=== PATIENT | female | born 1965 | race Caucasian/White ===

== ENCOUNTER → 2017-02-24 | Outpatient (CLI) | payer BC ==
--- NOTE | 2017-02-24 14:28 | MM ---
Reason for exam: follow-up at short interval from prior study. Last mammogram was performed 6 months ago. History: Patient is postmenopausal and history of other cancer. Family history of breast cancer in grandmother at age 97. Benign US left guided VAD of the left breast, July 17, 2009. Benign US left guided VAD of the left breast, July 17, 2009. Benign excisional biopsy of the left breast, 1991. Took estrogen for 2 years beginning at age 42. MG Diagnostic Mammo LT w CAD CC, MLO, and ML view(s) were taken of the left breast. Prior study comparison: August 13, 2016, bilateral MG screening mammo w CAD. June 14, 2015, bilateral MG screening mammo w CAD. August 06, 2011, bilateral digital screening mammo w/CAD. The breast tissue is heterogeneously dense. This may lower the sensitivity of mammography. Finding: There are typically benign round calcifications in the left breast. Previous mammotome biopsy in the left breast x 2. There is no discrete abnormality. These results were verbally communicated with the patient and result sheet given to the patient on 02/24/17. ASSESSMENT: Benign, BI-RAD 2 RECOMMENDATION: Return to routine screening mammogram schedule for both breasts. Back on schedule.
== END | disposition home or self-care (01) ==
LOC: RADMAMWWP 12:45
PROVIDERS: ATTEND Family Medicine
DX: R92.8 Other abnormal and inconclusive findings on diagnostic imaging of breast (principal)

== ENCOUNTER 2017-12-31 13:29 | Emergency (ER) | payer BC ==
[2017-12-31] MEDS ORDERED: LABETALOL 5 MG/ML VIAL MDV IVP STA (13:47)
--- NOTE | 2017-12-31 14:14 | ED ---
General Adult HPI - General Chief complaint: Neuro Symptoms/Deficit Stated complaint: right arm numbness Time Seen by Provider: 12/31/17 13:39 Source: patient Mode of arrival: ambulatory Limitations: no limitations - History of Present Illness Initial comments: This 52-year-old white female presents with a complaint of some right arm numbness. This is been present since waking this morning. She denies any actual right arm pain or weakness. She denies any other extremity pain, numbness, or weakness. She denies any chest pain or shortness of breath. There is no other neurologic complaints such as problems with ambulation, vision , speech, or coordination. She denies any previous history of CVA or TIA. She denies any cardiac problems. His been no fevers or chills. She does relate a history of lymphoma which has been in remission for the last 8 years. She has not followed up much with this recently. No other complaints or modifying factors. - Related Data Home Medications Medication Instructions Recorded Confirmed Black Cohosh Root [Black Cohosh] 200 mg PO DAILY 12/31/17 12/31/17 Ibuprofen [Motrin Ib] 200 - 400 mg PO Q6H PRN 12/31/17 12/31/17 Losartan Potassium 100 mg PO DAILY 12/31/17 12/31/17 Meclizine [Antivert] 12.5 mg PO TID 12/31/17 12/31/17 Triamterene-Hctz 37.5-25Mg 1 cap PO DAILY 12/31/17 12/31/17 [Dyazide 37.5-25 Capsule] Turmeric Root Extract [Turmeric] 500 mg PO DAILY 12/31/17 12/31/17 metFORMIN HCL ER [Glucophage Xr] 500 mg PO DAILY 12/31/17 12/31/17 Allergies Allergy/AdvReac Type Severity Reaction Status Date / Time attapulgite [From Donnagel] Allergy Rash/Hives Verified 12/31/17 15:13 bee venom protein (honey bee) Allergy Anaphylaxis Verified 12/31/17 15:13 acetaminophen [From Vicodin] AdvReac Nausea Verified 12/31/17 15:13 hydrocodone [From Vicodin] AdvReac Nausea Verified 12/31/17 15:13 Review of Systems ROS Statement: Those systems with pertinent positive or pertinent negative responses have been documented in the HPI. ROS Other: All systems not noted in ROS Statement are negative. Past Medical History Past Medical History: Cancer, Diabetes Mellitus, Hypertension Additional Past Medical History / Comment(s): Lymphoma History of Any Multi-Drug Resistant Organisms: None Reported Past Surgical History: Hysterectomy, Tonsillectomy Past Psychological History: No Psychological Hx Reported Smoking Status: Former smoker Past Alcohol Use History: None Reported Past Drug Use History: None Reported General Exam - General Exam Comments Initial Comments: GENERAL: The patient is well nourished and well hydrated. VITAL SIGNS: Heart rate, blood pressure, respiratory rate reviewed as recorded in nurse's notes. EYES: Pupils are round and reactive. Extraocular movements are intact. No conjunctival / lid redness or swelling. ENT: No external evidence of injury, swelling, or ecchymosis. Airway is patent. Throat is clear. NECK: Nontender. No swelling or evidence of injury. No subcutaneous emphysema. Trachea is midline. No thyroid mass. HEART: Regular rate and rhythm. Good peripheral pulses. LUNGS/CHEST: Breath sounds clear and equal bilaterally. No rales, rhonchi, or wheezes. No ecchymosis, subcutaneous emphysema, or tenderness. ABDOMEN: Abdomen soft without tenderness. No palpable masses or organomegaly. No peritoneal signs. No abdominal wall swelling or ecchymosis. EXTREMITIES: No extremity tenderness. Normal muscle tone and function. No thoracolumbar tenderness. NEUROLOGIC: Sensation is grossly intact currently. Cranial nerve exam reveals face is symmetrical, tongue is midline, speech is clear. SKIN: No abrasions or ecchymosis is noted. No induration or masses noted. PSYCHIATRIC: Alert and oriented. Appropriate behavior and judgment. Limitations: no limitations Course Vital Signs 12/31/17 12/31/17 13:29 14:22 Temperature 97.6 F Pulse Rate 90 88 Respiratory 108 H 18 Rate Blood Pressure 188/94 174/83 O2 Sat by Pulse 97 95 Oximetry Medical Decision Making - Medical Decision Making The patient was seen and examined. All diagnostics were reviewed. An EKG was done and shows a normal sinus rhythm at a rate of 79. There is no acute ST-T wave changes identified. The NE intervals 188, QRS duration is 90, and the QTC intervals 458. The computed tomography scan of the brain, chest x-ray, and labs were all essentially within normal limits are unremarkable. The exact cause of her symptoms are not definitively determined. It is not felt as though she would require admission to the hospital at this time but may follow- up with neurology on outpatient basis. She is instructed to take a baby aspirin daily. She also has some hypertension issues which she should follow- up closely with her primary care physician for as well. All questions are answered and she leaves in no distress. Return parameters are discussed. - Lab Data Result diagrams: 12/31/17 14:20 12/31/17 14:20 Lab Results 12/31/17 12/31/17 12/31/17 Range/Units 14:20 14:20 14:20 WBC 6.7 (3.8-10.6) k/uL RBC 4.43 (3.80-5.40) m/uL Hgb 13.4 (11.4-16.0) gm/dL Hct 39.1 (34.0-46.0) % MCV 88.3 (80.0-100.0) fL MCH 30.2 (25.0-35.0) pg MCHC 34.2 (31.0-37.0) g/dL RDW 12.5 (11.5-15.5) % Plt Count 267 (150-450) k/uL Neutrophils % 67 % Lymphocytes % 23 % Monocytes % 6 % Eosinophils % 2 % Basophils % 1 % Neutrophils # 4.5 (1.3-7.7) k/uL Lymphocytes # 1.5 (1.0-4.8) k/uL Monocytes # 0.4 (0-1.0) k/uL Eosinophils # 0.1 (0-0.7) k/uL Basophils # 0.0 (0-0.2) k/uL PT (9.0-12.0) sec INR (<1.2) APTT (22.0-30.0) sec Sodium 142 (137-145) mmol/L Potassium 3.7 (3.5-5.1) mmol/L Chloride 102 (98-107) mmol/L Carbon Dioxide 29 (22-30) mmol/L Anion Gap 11 mmol/L BUN 19 H (7-17) mg/dL Creatinine 0.63 (0.52-1.04) mg/dL Est GFR (CKD-EPI)AfAm >90 (>60 ml/min/1.73 sqM) Est GFR (CKD-EPI)NonAf >90 (>60 ml/min/1.73 sqM) Glucose 108 H (74-99) mg/dL Calcium 10.2 (8.4-10.2) mg/dL Total Bilirubin 0.6 (0.2-1.3) mg/dL AST 36 (14-36) U/L ALT 61 H (9-52) U/L Alkaline Phosphatase 76 (38-126) U/L Total Creatine Kinase 92 (30-135) U/L CK-MB (CK-2) 0.7 (0.0-2.4) ng/mL CK-MB (CK-2) Rel Index 0.8 Troponin I <0.012 (0.000-0.034) ng/mL Total Protein 6.9 (6.3-8.2) g/dL Albumin 4.2 (3.5-5.0) g/dL 12/31/17 Range/Units 14:20 WBC (3.8-10.6) k/uL RBC (3.80-5.40) m/uL Hgb (11.4-16.0) gm/dL Hct (34.0-46.0) % MCV (80.0-100.0) fL MCH (25.0-35.0) pg MCHC (31.0-37.0) g/dL RDW (11.5-15.5) % Plt Count (150-450) k/uL Neutrophils % % Lymphocytes % % Monocytes % % Eosinophils % % Basophils % % Neutrophils # (1.3-7.7) k/uL Lymphocytes # (1.0-4.8) k/uL Monocytes # (0-1.0) k/uL Eosinophils # (0-0.7) k/uL Basophils # (0-0.2) k/uL PT 9.9 (9.0-12.0) sec INR 1.0 (<1.2) APTT 23.3 (22.0-30.0) sec Sodium (137-145) mmol/L Potassium (3.5-5.1) mmol/L Chloride (98-107) mmol/L Carbon Dioxide (22-30) mmol/L Anion Gap mmol/L BUN (7-17) mg/dL Creatinine (0.52-1.04) mg/dL Est GFR (CKD-EPI)AfAm (>60 ml/min/1.73 sqM) Est GFR (CKD-EPI)NonAf (>60 ml/min/1.73 sqM) Glucose (74-99) mg/dL Calcium (8.4-10.2) mg/dL Total Bilirubin (0.2-1.3) mg/dL AST (14-36) U/L ALT (9-52) U/L Alkaline Phosphatase (38-126) U/L Total Creatine Kinase (30-135) U/L CK-MB (CK-2) (0.0-2.4) ng/mL CK-MB (CK-2) Rel Index Troponin I (0.000-0.034) ng/mL Total Protein (6.3-8.2) g/dL Albumin (3.5-5.0) g/dL Disposition Clinical Impression: Arm paresthesia, right, Hypertension Disposition: HOME SELF-CARE Condition: Good Instructions: Paresthesia (ED), DASH Eating Plan (ED), Hypertension (ED) Referrals: Marilee Dover DO [Primary Care Provider] - 1-2 days Shayla lFaherty MD [STAFF PHYSICIAN] - As Soon As Possible Time of Disposition: 15:39
[2017-12-31 14:24] VITALS: RESP 18
[2017-12-31 14:36] LABS: Basophils % (A) 1 %; Eosinophils # (A) 0.1 k/uL (0-0.7); Eosinophils % (A) 2 %; HCT 39.1 % (34.0-46.0); HGB 13.4 gm/dL (11.4-16.0); Lymphocytes # (A) 1.5 k/uL (1.0-4.8); Lymphocytes % (A) 23 %; MCH 30.2 pg (25.0-35.0); MCHC 34.2 g/dL (31.0-37.0); MCV 88.3 fL (80.0-100.0); Mean Platelet Volume 7.3; Monocytes # (A) 0.4 k/uL (0-1.0); Monocytes % (A) 6 %; Neutrophils # (A) 4.5 k/uL (1.3-7.7); Neutrophils % (A) 67 %; Platelet Count 267 k/uL (150-450); RBC 4.43 m/uL (3.80-5.40); RDW 12.5 % (11.5-15.5); WBC 6.7 k/uL (3.8-10.6)
[2017-12-31 14:46] LABS: ALT 61 U/L (9-52); AST 36 U/L (14-36); Albumin 4.2 g/dL (3.5-5.0); Alkaline Phosphatase 76 U/L (38-126); Anion Gap 11 mmol/L; Blood Urea Nitrogen 19 mg/dL (7-17); Calcium 10.2 mg/dL (8.4-10.2); Carbon Dioxide 29 mmol/L (22-30); Chloride 102 mmol/L (98-107); Glucose 108 mg/dL (74-99); Potassium 3.7 mmol/L (3.5-5.1); Sodium 142 mmol/L (137-145); Total Bilirubin 0.6 mg/dL (0.2-1.3); Total Protein 6.9 g/dL (6.3-8.2)
--- NOTE | 2017-12-31 14:55 | XR ---
EXAMINATION TYPE: XR chest 2V DATE OF EXAM: 12/31/2017 COMPARISON: NONE HISTORY: Altered mental status TECHNIQUE: Frontal and lateral views of the chest are obtained. FINDINGS: There is no focal air space opacity, pleural effusion, or pneumothorax seen. The cardiac silhouette size is within normal limits. The osseous structures are intact. IMPRESSION: No acute cardiopulmonary process.
[2017-12-31 14:56] LABS: Creatine Kinase 92 U/L (30-135); Partial Thromboplastin Time 23.3 sec (22.0-30.0); Prothrombin Time 9.9 sec (9.0-12.0)
[2017-12-31 15:09] LABS: Creatine Kinase MB 0.7 ng/mL (0.0-2.4); Troponin I <0.012 ng/mL (0.000-0.034)
--- NOTE | 2017-12-31 15:25 | CT ---
EXAMINATION TYPE: CT brain wo con DATE OF EXAM: 12/31/2017 COMPARISON: NONE INDICATION: Patient complains of headache and right arm numbness. DLP: 999 mGycm, Automated exposure control for dose reduction was used. CONTRAST: None CT of the brain is performed utilizing 3 mm thick sections through the posterior fossa and 3 mm thick sections through the remaining calvarium. Study is performed within 24 hours of arrival to the hosp [facility]. No abnormal hyperdensity is present to suggest an acute intracranial hemorrhage. No mass lesion is evident. No acute infarcts are evident. Ventricles and sulci are appropriate for the patient age. Paranasal sinuses and mastoid air cells within the [id number] are clear. IMPRESSIONS: 1. Normal CT Brain
[2017-12-31 15:43] VITALS: BP 142/77; PULSE 83; TEMP 97.8
== END 2017-12-31 15:58 | disposition home or self-care (01) ==
LOC: EC 13:29
DX: I10 Essential (primary) hypertension (principal); R20.2 Paresthesia of skin; E11.9 Type 2 diabetes mellitus without complications; Z87.891 Personal history of nicotine dependence; Z79.84 Long term (current) use of oral hypoglycemic drugs; Z79.899 Other long term (current) drug therapy; Z88.5 Allergy status to narcotic agent; Z88.8 Allergy status to other drugs, medicaments and biological substances; Z91.030 Bee allergy status; Z85.72 Personal history of non-Hodgkin lymphomas
CPT/HCPCS: 36415; 70450; 71046; 80053; 82550; 82553; 84484; 85025; 85610; 85730; 93005; 96374; 99284

== ENCOUNTER → 2018-11-09 | Outpatient (CLI) | payer BC ==
--- NOTE | 2018-11-13 11:23 | MM ---
Reason for exam: screening (asymptomatic). Last mammogram was performed 1 year and 8 months ago. History: Patient is postmenopausal and history of other cancer. Family history of breast cancer in grandmother at age 97. Benign US left guided VAD of the left breast, July 17, 2009. Benign US left guided VAD of the left breast, July 17, 2009. Benign excisional biopsy of the left breast, 1991. Took estrogen for 2 years beginning at age 42. MG Screening Mammo w CAD Bilateral CC and MLO view(s) were taken. Prior study comparison: February 24, 2017, left breast MG diagnostic mammo LT w CAD. August 20, 2016, left breast MG work up mamm w CAD LT. The breast tissue is heterogeneously dense. This may lower the sensitivity of mammography. There are benign-appearing round dystrophic bilateral breast calcifications. Previous mammotome biopsy on the left breast. No discrete abnormality. ASSESSMENT: Benign, BI-RAD 2 RECOMMENDATION: Routine screening mammogram of both breasts in 1 year.
== END | disposition home or self-care (01) ==
LOC: RADMAMWWP 10:59
PROVIDERS: ATTEND Family Medicine
DX: Z12.31 Encounter for screening mammogram for malignant neoplasm of breast (principal)
CPT/HCPCS: 77067

== ENCOUNTER → 2020-08-22 | Outpatient (CLI) | payer BC ==
--- NOTE | 2020-08-24 11:06 | MM ---
Reason for exam: screening (asymptomatic). Last mammogram was performed 1 year and 9 months ago. History: Patient is postmenopausal and history of other cancer. Family history of breast cancer in grandmother at age 97. Benign US left guided VAD of the left breast, July 17, 2009. Benign US left guided VAD of the left breast, July 17, 2009. Benign excisional biopsy of the left breast, 1991. Took estrogen for 2 years beginning at age 42. Physical Findings: A clinical breast exam by your physician is recommended on an annual basis and results should be correlated with mammographic findings. MG Screening Mammo w CAD Bilateral CC and MLO view(s) were taken. Prior study comparison: November 09, 2018, bilateral MG screening mammo w CAD. February 24, 2017, left breast MG diagnostic mammo LT w CAD. The breast tissue is heterogeneously dense. This may lower the sensitivity of mammography. Previous mammotome biopsy in the left breast x 2. Benign oil cyst calcifications. No significant changes when compared with prior studies. ASSESSMENT: Benign, BI-RAD 2 RECOMMENDATION: Routine screening mammogram of both breasts in 1 year.
== END | disposition home or self-care (01) ==
LOC: RADMAMWWP 16:45
PROVIDERS: ATTEND Family Medicine
DX: Z12.31 Encounter for screening mammogram for malignant neoplasm of breast (principal)
CPT/HCPCS: 77067

== ENCOUNTER → 2022-03-19 | Outpatient (CLI) | payer BC ==
--- NOTE | 2022-03-20 14:50 | MM ---
Reason for Exam: Screening (asymptomatic). Last mammogram was performed 1 year(s) and 7 month(s) ago. Patient History: Menarche at age 13. First Full-Term at age 23. Left ovary removed at age 40. Right ovary removed at age 40. Hysterectomy at age 40. Postmenopausal. Other cancer under age 50. Estrogen for 2 years from age 42 until age 44. 1991, Benign Excisional Biopsy on the left side. 07/17/2009, Benign Core Biopsy on the left side. 07/17/2009, Benign Core Biopsy on the left side. Maternal grandmother had breast cancer, age 97. Risk Values: Fatou 5 year model risk: 1.7%. NCI Lifetime model risk: 10.7%. Film Views: Bilateral CC views were taken. Bilateral MLO views were taken. Prior Study Comparison: 02/24/2017 Left Diagnostic Mammogram, [facility]. 11/09/2018 Bilateral Screening Mammogram, [facility]. 08/22/2020 Bilateral Screening Mammogram, [facility]. Tissue Density: The breast tissue is heterogeneously dense. This may lower the sensitivity of mammography. Findings: Analyzed By CAD. There is no suspicious group of microcalcifications or new suspicious mass in either breast. Overall Assessment: Benign, BI-RAD 2 Management: Screening Mammogram of both breasts in 1 year. A clinical breast exam by your physician is recommended on an annual basis and results should be correlated with mammographic findings. Electronically signed and approved by: Serjio Montague M.D. Radiolog[facility]
== END | disposition home or self-care (01) ==
LOC: RADMAMWWP 09:05
PROVIDERS: ATTEND Family Medicine
DX: Z12.31 Encounter for screening mammogram for malignant neoplasm of breast (principal); Z78.0 Asymptomatic menopausal state; Z80.3 Family history of malignant neoplasm of breast; Z90.721 Acquired absence of ovaries, unilateral
CPT/HCPCS: 77067